=== PATIENT | female | born 1940 | race Caucasian/White ===

== ENCOUNTER → 2020-12-25 | Outpatient (CLI) | payer MEDICARE | END | disposition home or self-care (01) | LOC: RAD 10:01 | PROVIDERS: ATTEND Internal Medicine Gastroenterology | DX: K44.9 Diaphragmatic hernia without obstruction or gangrene (principal); R11.0 Nausea; R14.2 Eructation; K30 Functional dyspepsia | CPT/HCPCS: 78264; A9541 ==